=== PATIENT | female | born 1955 | race Caucasian/White ===

== ENCOUNTER 2016-12-09 12:45 | Emergency (ER) | payer MEDICAID ==
[~2016-12-09] VITALS: Ht 172.7 cm; Wt 91.6 kg
[2016-12-09 12:48] VITALS: BP 139/77
== END 2016-12-09 14:27 | disposition home or self-care (01) ==
LOC: ED 12:45
DX: N39.0 Urinary tract infection, site not specified (principal); M06.9 Rheumatoid arthritis, unspecified; Z90.89 Acquired absence of other organs